=== PATIENT | female | born 1965 | race Caucasian/White ===

== ENCOUNTER → 2019-12-31 | Outpatient (CLI) | payer OTHER ==
[~2019-12-31] VITALS: Ht 170.2 cm; Wt 72.6 kg
[~2019-12-31] MED LIST: CALCIUM 250+D1 EACH PO; CELEBREX 200 M200 M1 PO; HYDROCODON-ACE1 EAC8 PO; PROAIR HFA8.5 GM INH
--- NOTE | ~2019-12-31 | HPC ---
[facility] [address] [place] [address] PAIN MANAGEMENT CONSULTATION Name: EMILIE MCCORD Room #: REG [facility].#: [id number] Admission: 12/31/19 Attend Phys: Jimenez Abad MD Discharge: Date of : 69 Report #: [id number] CC: CECIL Chapman MD Physician staff Jimenez Abad DATE OF SERVICE: 12/31/2019 CHIEF COMPLAINT: Low back pain with occasional radiculopathy. 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 She works 40 hours a week and is extremely active. She suffers from chronic back pain. Her back pain is her predominant symptom, although she occasionally has some radiating pain into the legs. Her second problem is cervical. She has pain in her neck that radiates into her left arm. It is worse with activity. When the pain is severe it has radicular features all the way into the hand, although she cannot specify a dermatome. She has had both lumbar surgery with Dr. Tran around 2008, a laminectomy and a distant anterior cervical diskectomy and fusion also with Dr. Tran. Pain has been better after these surgeries, but not completely. She was getting along pretty well with medication up until about 2 years ago. She used hydrocodone to manage her pain. Dr. Hurtado provided her with 4-5 hydrocodone 10/325 tablets per day and with that she was able to continue working. 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 Raya who felt uncomfortable with those doses and has since reduced her medication to hydrocodone 7.5 three times a day. The patient reports that this is inadequate and she has been sent back to discuss further options with Dr. Tran of a surgical nature. It is Dr. Tran who suggested the possibility of a spinal cord stimulator. Spinal cord stimulation was chosen apparently because of a feeling that this might provide enough pain relief that she would be able to eliminate her use of opioids. Dr. Tran counseled her against this and told her that even with success she might still require hydrocodone. He asked her to come to me to discuss the procedure of trialing and to give other opinions. Today, she describes her pain as an 8-9/10 continuous, shooting, burning, aching, stabbing and sharp. She complains today almost equally of the pain in her back lumbosacral as well as her cervical spine with radiation to the left arm. MEDICATIONS: Hydrocodone 7.5/325 three tablets daily, Celebrex 200 mg b.i.d., and calcium. ALLERGIES: None. PAST MEDICAL HISTORY: Positive for asthma and early COPD. She complains of degenerative arthritis in several joints that are aching secondary to her other pains. SOCIAL HISTORY: She is a pourer. She lives with her daughter and granddaughter who is 2 years of age. She denies the use of alcohol, but smokes half-pack of cigarettes per day. She was counseled. She denies use of any illicit drugs including marijuana, even in a medicinal form, methamphetamine or any history of addiction. She has completed an opioid risk tool in our clinic today and her score is 0. Functional score is 39/70. REVIEW OF SYSTEMS: Positive for fatigue and weakness. She does work a very difficult manual job. She is short of breath on exertion, dyspnea on exertion and some orthopnea. She has nocturia and complains of excessive thirst. Other musculoskeletal and neuropathic symptoms described above. PHYSICAL EXAMINATION: GENERAL: This is a pleasant masked female, alert and oriented with no signs of anxiety or depression. HEENT: Normal. Pupils are equal, round, react to light and eyes appeared normal. NECK: Relatively supple, but she has some pain with neck extension, radiating pain into the right arm. CHEST: Breath sounds are equal bilaterally. She has some expiratory wheezing. CARDIAC: Rhythm is regular. ABDOMEN: Soft, nontender. MUSCULOSKELETAL: Examination of the lumbosacral spine reveals scar and tenderness. Deep tendon reflexes are 2+ at knees and ankles. Straight leg raising is negative. IMPRESSION: 1. Lumbosacral pain, chronic, post-laminectomy. Mild lumbar radiculopathy, intermittent. 2. Cervicalgia with radiculopathy in the left, status post ACDF. 3. Chronic obstructive pulmonary disease and continued daily tobacco use. RECOMMENDATION: I did discuss spinal cord stimulator with her in some detail using a model and she was provided information from [employer]. We discussed the complex nature of this therapy and the multiple steps required to go from decision to a favorable response. These include preprocedural evaluation by psychiatrist, insurance evaluation and approval, placement of temporary diagnostic leads for 5 days and removal, a period of waiting to avoid risk of infection and then permanent implant, which will require several weeks for healing. During this time, several adjustments may be necessary in the stimulation patterns to provide best relief and this would require multiple visits back to the pain clinic or to Dr. Tran's office. We discussed risks of the procedure including failure of the procedure to provide outcomes desired, difficulty in placement of leads, movement of leads, infection and loss of response within a short period of time measured in months or years. Multiple questions were answered. I also discussed options of injection therapies. She has not had an epidural injection nor she had medial branch nerve blocks. Both of these could be considered as intermediate steps before going forward with an extensive spinal cord stimulation system. Given the fact that she does not have significant radiculopathy and has other pain generators in her neck with radiculopathy, she may continue to require pain medications of some form to help her through her busy and active days. Another option would be simply to put her back on hydrocodone 10/325 four times daily and if this is satisfiers her pain request, I believe that she could continue this indefinitely under the terms of written opioid agreement provided by her primary care physician. This is well within the CDC guidelines for the use of opioids in the treatment of chronic intractable pain. Trials of gabapentin may also be considered. Thank you for the consultation. Time spent with the patient, 45 minutes. By: [id number] Jimenez Abad MD /carly
[2019-12-31 13:57] VITALS: BP 149/84
--- NOTE | 2019-12-31 14:16 | NUR ---
Pain Clinic Assessment: 1. History of Osteoarthritis: Left Lower Extremity Right Lower Extremity SPINE History of Rheumatoid Arthritis: Not Applicable 2. Height: 5 ft. 77 in. 348.0 cm. Weight: 160.0 lb. oz. 72.576 kg. Patient's BMI: 6.0 3. Vital Signs: BP: 149/84 Pulse: 65 Resp: 16 Temp: 02 Sat: 100 ECG Mon: 4. Pain Intensity: 7 5. Fall Risk: Dizziness: N Needs help standing or walking: N Fallen in the last 3 months: N Fall risk comments: 6. Patient on Blood Thinner: None 7. History of Hypertension: N 8. Opioid Therapy greater than 6 weeks: Y Opiate Contract Signed: 9. Risk Assessment Tool Provided: 10. Functional Assessment Tool: LOW 11. Recreational Drug Use: Never Drug Type: Tobacco Use: Current Every Day Smoker Tobacco Type: Cigarettes Amount or Packs/day: 1/2 How Many Years: 20 Alcohol Use: No Frequency: Quant:
== END ==
LOC: PAIN 07:00
PROVIDERS: ATTEND Anesthesiology Pain Medicine
DX: M96.1 Postlaminectomy syndrome, not elsewhere classified (principal); G89.29 Other chronic pain; M54.16 Radiculopathy, lumbar region; M54.12 Radiculopathy, cervical region; J44.9 Chronic obstructive pulmonary disease, unspecified; F17.200 Nicotine dependence, unspecified, uncomplicated